=== PATIENT | female | born 1990 | race Caucasian/White ===

== ENCOUNTER → 2016-04-01 | Outpatient (CLI) | payer SELFPAY ==
[~2016-04-01] MED LIST: MOTR200T44 PO; TYLE325T5 PO
--- NOTE | 2016-04-01 09:04 | REP ---
Clinical: Anatomical evaluation. Comparison: 09/03/2015 . Findings: Examination demonstrates a single live intrauterine in none cephalic presentation. motion is identified by technologist. Placenta is noted posteriorly and grade 2 without evidence for placenta previa or abruption. Amniotic fluid volume is normal. Cervix measures 4.4 cm in length and appears closed. No evidence for nuchal cord. Gestational age by current measurements 24 weeks 2 days with IZZY 07/20/2016 . FHR equals 139 beats per minute. BPD 5.8 cm 23 weeks 4 days HC 21.4 cm 23 weeks 3 days AC 20.9 cm 25 weeks 3 days FL 4.7 cm 25 weeks 4 days HL 4.5 cm 26 weeks 4 days HC/AC ratio 1.03 Estimated weight 781 grams ( 73rd percentile). Anatomical assessment demonstrates normal structures including cranium, choroid plexus, cavum, cerebellum/posterior fossa, facial features, lungs, four-chamber heart/ventricular outflow tracts, diaphragm, stomach, cord insertion/three-vessel cord, kidneys/bladder, spine, and extremities. Impression: Single live intrauterine in cephalic presentation. Anatomical assessment is complete and normal. Signed by Jesus Manuel Wang MD 04/01/2016 08:56 A
[2016-04-01 12:32] LABS: BASO % 0.3 % (0.0-1.0); EOS # 0.2 K/mm3 (0.0-0.50); EOS % 1.8 % (0.0-3.0); LARGE UNSTAINED CELL # 0.2 K/mm3 (0.0-0.4); LARGE UNSTAINED CELL % 1.4 % (0.0-4.0); LYMPH # 2.8 K/mm3 (1.5-6.5); LYMPH % 20.1 % (24.0-44.0); MEAN CORPUSCULAR HEMOGLOBIN 31.3 pg (27.0-33.0); MEAN CORPUSCULAR HGB CONC 32.7 g/dl (32.0-36.5); MEAN CORPUSCULAR VOLUME 95.5 fl (80.0-96.0); MONO # 0.8 K/mm3 (0.0-0.8); NEUTROPHILS # 9.3 K/mm3 (1.8-7.7); NEUTROPHILS % 70.5 % (36.0-66.0); PLATELET COUNT, AUTOMATED 300 k/mm3 (150-450); RED CELL DISTRIBUTION WIDTH 12.8 % (11.5-14.5); WHITE BLOOD COUNT 13.2 K/mm3 (4.0-10.0)
[2016-04-01 13:04] LABS: HBsAg Prenatal NEGATIVE (NEGATIVE)
[2016-04-01 13:23] LABS: FREE T4 0.85 NG/DL (0.76-1.46)
[2016-04-01 14:18] LABS: CONTROL LINE INT CTR LINE PRESENT; HIV SCRN NEGATIVE (NEGATIVE); HIV SCRN1 NEGATIVE (NEGATIVE)
== END ==
LOC: M SMT 07:57
PROVIDERS: ATTEND Specialist
DX: Z34.82 Encounter for supervision of other normal pregnancy, second trimester (principal)

== ENCOUNTER 2016-07-16 17:14 | Inpatient (IN) | payer SELFPAY ==
[2016-07-16] VITALS (24 sets, daily range): BP systolic 90–138; BP diastolic 52–72
[~2016-07-16] VITALS: Ht 165.1 cm; Wt 78.0 kg
[2016-07-16] MEDS ORDERED: PENICILLIN G POTASSIUM IV 5 MU in D5W MINI-BAG PLUS 100 ML IV STA (18:16)
--- NOTE | 2016-07-16 18:59 | HPE ---
DATE OF ADMISSION: 07/16/2016 Maria R is a 25-year-old 4, para 1-0-2-1 at 39 weeks gestation with an estimated date of confinement (EDC) of 07/23/2016 based on 23-week ultrasound. She presents to labor and delivery today with report of gush of fluid at approximately 1330 hours. She does report some mild cramping that started after the gushing. Denies any vaginal bleeding. She has had continual leakage, and her fetus has been active. care has been extremely inadequate. She did initiate care at 23 weeks at a [facility] but only obtained one care visit. She reports the inability to obtain insurance. She has been seen at [facility] since about March for education and support. OBSTETRICAL HISTORY: 2010: Spontaneous miscarriage. September: 40-week gestation, 6 pounds 11 ounces, spontaneous vaginal delivery of a live female September 2015: Spontaneous miscarriage. Her first labs: Blood type O+, antibody screen negative, rubella immune. Urine culture with no growth. Hepatitis B surface antigen negative. HIV negative. Hepatitis C antibody nonreactive. Gonorrhea and chlamydia negative. TSH 2.720 with a free T4 of 0.85. She did not have any genetic serum screening markers. She did not have a gestational diabetic screening and she is GBS unknown. PAST MEDICAL HISTORY: Depression, anxiety. FAMILY HISTORY: Hypertension. SURGERIES: Dilation and curettage (D and C). SOCIAL HISTORY: The patient is single. There is no partner at bedside for support at this time. She is a smoker. Denies alcohol and drug use. She denies a history of sexually transmitted diseases (STDs). Denies history of abuse - physical, sexual and emotional. ALLERGIES: No known drug allergies. CURRENT MEDICATIONS: vitamins OBJECTIVE: Temperature 98.9, pulse 84, respirations 18, blood pressure 102/69. heart rate is 130 with moderate variability, positive accelerations, decelerations. No pattern of contractions. Sterile speculum exam: Positive Valsalva, positive pooling, positive Nitrazine and positive ferning. Sterile vaginal exam: 3 cm dilated, 80% effaced and -1 station. ASSESSMENT: Intrauterine at 39 weeks. heart rate category one. Premature rupture of membranes. PLAN: Admit the patient to labor and delivery, labs, out of bed ad steve. Saline lock. Clear liquid diet. Will start intravenous (IV) antibiotics for GBS unknown prophylaxis. I do plan to start IV Pitocin 4 hours post IV antibiotics for GBS. I do anticipate labor and a spontaneous vaginal delivery.
[2016-07-16 19:04] LABS: MEAN CORPUSCULAR HEMOGLOBIN 32.7 pg (27.0-33.0); MEAN CORPUSCULAR HGB CONC 34.8 g/dl (32.0-36.5); MEAN CORPUSCULAR VOLUME 93.9 fl (80.0-96.0); RED CELL DISTRIBUTION WIDTH 13.1 % (11.5-14.5); WHITE BLOOD COUNT 16.6 K/mm3 (4.0-10.0)
[2016-07-16] MEDS ORDERED: LR 1,000 ML IV SCH (21:05)
[2016-07-16] MEDS ORDERED: OXYTOCIN DRIP 30 UNITS in APPROPRIATE DILUENT 1 EA IV SCH ×2 (21:15→23:47)
[2016-07-16] MEDS ORDERED: FENTANYL 2MCG/ML ROPIVACAINE 0.2% IN 0.9% NACL 200ML IVBAG As Ordered ONE (21:25)
[2016-07-16] MEDS ORDERED: ePHEDrine SULFATE 25 MG/5 ML(5MG/ML) SYRINGE IV PRN (22:00)
[2016-07-16] MEDS ORDERED: REFRIGERATOR IV KEYS XX PRN (22:00)
[2016-07-16] MEDS ORDERED: diphenhydrAMINE INJ 50MG/ML VIAL (J1200) IV PRN (22:00)
[2016-07-16] MEDS ORDERED: EPIDURAL COMMENT XX SCH (22:00)
[2016-07-16] MEDS ORDERED: NALOXONE INJ 0.4 MG/1 ML VIAL (J2310) IV PRN (22:00)
[2016-07-16] MEDS ORDERED: LACTATED RINGER'S 1000 ML IV PRN (22:00)
[2016-07-16] MEDS ORDERED: FENTANYL/ROPIVACAINE/NACL BAG 200 ML EPIDURAL SCH (22:00)
[2016-07-16] MEDS ORDERED: ONDANSETRON 4MG/2ML VIAL (J2405) IV PRN (22:00)
[2016-07-16] MEDS ORDERED: EPIDURAL/PCA KEYS XX PRN (22:00)
[2016-07-16] MEDS ORDERED: PENICILLIN G POTASSIUM IV 2.5 MU in D5W 100 ML IV SCH (22:30)
[2016-07-16] MEDS ORDERED: OXYTOCIN 30 UNITS IN 0.9% NaCl 500ML IV BAG (J2590) As Ordered ONE (23:32)
[2016-07-17] VITALS (7 sets, daily range): BP systolic 105–123; BP diastolic 53–68
[2016-07-17] MEDS ORDERED: RHOGAM 300 MCG (1500 IU) INJ (J2790) IM SCH
[2016-07-17] MEDS ORDERED: METHYLERGONOVINE MALEATE 0.2 MG TAB PO PRN
[2016-07-17] MEDS ORDERED: DOCUSATE SODIUM 100 MG CAP PO PRN
[2016-07-17] MEDS ORDERED: MEASLES,MUMPS,RUBELLA VACCINE INJ (MMR-II) (90707) SC SCH
[2016-07-17] MEDS ORDERED: DIBUCAINE 1% OINTMENT 30GM TOP PRN
--- NOTE | 2016-07-17 00:57 | DN ---
DATE: 07/16/2016 Maria R is a 25-year-old 4, para 2-0-2-2 now, who was admitted to labor and delivery with premature rupture of membranes. Labor did ensue spontaneously. She utilized an epidural for her labor coping. She progressed to full dilation at 2317. She pushed to a normal spontaneous vaginal delivery of a live female infant in direct occiput posterior (OP) position with restitution to left occiput transverse (LOT) position at 2327. The shoulders delivered with gentle downward guidance, and the corpus immediately followed. There was a cord near at the shoulder at the time of delivery. [place] was placed on maternal abdomen crying and active. Her mouth and nares were bulb suctioned. The cord was clamped times two and cut by myself. A spontaneous expulsion of an intact placenta with 3-vessel cord by Harvey mechanism was at 2331. Uterine hemostasis achieved with intravenous (IV) Pitocin rapid infusion and uterine fundal massage. Estimated blood loss 250 mL. Perineum and vagina inspected, noted to have a perineal abrasion. Abrasion was bleeding, so two interrupted sutures were placed. Abrasion was hemostatic. Female , Apgars 9 and 9. The weight is pending. Mom is going to breastfeed her daughter, and family have named her April. At the close of delivery, lap counts, needle counts, and instrument counts were correct and verified. [facility]
[2016-07-17] MEDS: PRENATAL VITAMIN TAB PO SCH (09:42)
[2016-07-17] MEDS: IBUPROFEN 800 MG TAB PO PRN ×2 (09:42→21:46)
[2016-07-17] MEDS: ACETAMINOPHEN 500 MG TAB PO PRN ×2 (17:11→21:46)
[2016-07-18] MEDS: IBUPROFEN 800 MG TAB PO PRN (03:05)
[2016-07-18 05:46] VITALS: BP 111/62
[2016-07-18] MEDS: PRENATAL VITAMIN TAB PO SCH (08:12)
[2016-07-18] MEDS ORDERED: IBUP-1114 PO (08:27)
[2016-07-18] MEDS ORDERED: ACET50TA PO (08:27)
[2016-07-18] MEDS ORDERED: PRENTAB9 PO (08:27)
[2016-07-18] MEDS ORDERED: ADACEL/BOOSTRIX VACCINE (DIPHTH/PERTUSS/ACELL/TETANUS)0.5ML SYR (90715) IM ONE (09:00)
[2016-07-24 14:15] LABS: GC Carboxy THC 41 ng/mL (Cutoff=10)
== END 2016-07-18 09:10 | disposition home or self-care (01) | DRG 560 ==
LOC: M LDO 17:14 → M LDI 18:03 → M OBS 07-17 02:21
PROVIDERS: ADMIT Advanced Practice Midwife; ATTEND Advanced Practice Midwife
PROC: 10E0XZZ Delivery of Products of Conception, External Approach (ICD-10-PCS; principal; 2016-07-16)
PROC: 0HQ9XZZ Repair Perineum Skin, External Approach (ICD-10-PCS; 2016-07-16)
DX: O99.334 Smoking (tobacco) complicating childbirth (principal); F17.200 Nicotine dependence, unspecified, uncomplicated; Z3A.39 39 weeks gestation of pregnancy; Z37.0 Single live birth; Z82.49 Family history of ischemic heart disease and other diseases of the circulatory system; Z79.899 Other long term (current) drug therapy; O70.0 First degree perineal laceration during delivery

== ENCOUNTER 2016-11-03 17:03 | Emergency (ER) | payer MEDICAID, OTHER ==
[~2016-11-03] VITALS: Ht 165.1 cm; Wt 79.5 kg
[~2016-11-03 17:03] MED LIST changes: +ACET50TA PO; +IBUP-1114 PO; +PRENTAB9 PO
--- NOTE | 2016-11-03 18:40 | REPUSA ---
Clinical history: spotting. Findings: Real-time transabdominal and transvaginal ultrasound images of the pelvis were obtained. An anteverted uterus is noted, measuring 9.3 x 4.3 x 5.6 cm. The uterus demonstrates normal echotexture and echogenicity. There is a single intrauterine gestational sac, with a mean sac diameter of 29 mm. No pole or yolk sac is identified. The right ovary measures 3.3 x 2.7 x 2.9 cm. There is a com plex cyst in the right ovary measuring 2.4 x 1.0 x 1.6 cm. The left ovary measures 4.1 x 1.9 x 1.8 cm . No adnexal masses are seen. Color Doppler flow is seen within both ovaries. There is no evidence of free fluid. Impression: 1. Intrauterine gestational sac measuring 5 weeks 0 days by ultrasound measurements. No pole or yolk sac is seen at this time, likely because of the early age of the . Follow-up with seri al serum beta hCG levels is recommended. 2. Complex right ovarian cyst, likely representing a corpus luteum cyst.
[2016-11-03 18:50] LABS: BASO % 0.5 % (0.0-1.0); EOS # 0.3 K/mm3 (0.0-0.50); LARGE UNSTAINED CELL # 0.3 K/mm3 (0.0-0.4); LARGE UNSTAINED CELL % 2.4 % (0.0-4.0); LYMPH # 3.5 K/mm3 (1.5-6.5); LYMPH % 34.9 % (24.0-44.0); MEAN CORPUSCULAR HEMOGLOBIN 32.3 pg (27.0-33.0); MEAN CORPUSCULAR HGB CONC 35.2 g/dl (32.0-36.5); MEAN CORPUSCULAR VOLUME 91.9 fl (80.0-96.0); MONO # 0.5 K/mm3 (0.0-0.8); MONO % 5.4 % (0.0-5.0); NEUTROPHILS # 5.4 K/mm3 (1.8-7.7); NEUTROPHILS % 53.8 % (36.0-66.0); PLATELET COUNT, AUTOMATED 315 k/mm3 (150-450); RED CELL DISTRIBUTION WIDTH 12.3 % (11.5-14.5); WHITE BLOOD COUNT 10.1 K/mm3 (4.0-10.0)
[2016-11-03 18:56] LABS: ANION GAP 9 MEQ/L (8-16); BLOOD UREA NITROGEN 10 MG/DL (7-18); CALCIUM LEVEL 8.3 MG/DL (8.5-10.1); CARBON DIOXIDE LEVEL 25 MEQ/L (21-32); CHLORIDE LEVEL 110 MEQ/L (98-107); CREATININE FOR GFR 0.69 MG/DL (0.55-1.02); GLOMERULAR FILTRATION RATE > 60.0 (>60); GLUCOSE, FASTING 77 MG/DL (70-105); HCG, SERUM QUANTITATIVE 367 MIU/ML; SODIUM LEVEL 144 MEQ/L (136-145)
[2016-11-03] MEDS ORDERED: MACR100C43 PO (19:10)
[2016-11-03] MEDS ORDERED: NITROFURANTOIN (MACROBID) 100 MG CAP PO ONE (19:15)
[2016-11-03 19:20] VITALS: BP 122/69
== END 2016-11-03 19:28 | disposition home or self-care (01) ==
LOC: M ED 17:03
DX: O23.10 Infections of bladder in pregnancy, unspecified trimester (principal); O20.9 Hemorrhage in early pregnancy, unspecified; O99.511 Diseases of the respiratory system complicating pregnancy, first trimester; J45.909 Unspecified asthma, uncomplicated; O99.341 Other mental disorders complicating pregnancy, first trimester; F32.9 Major depressive disorder, single episode, unspecified; O99.331 Smoking (tobacco) complicating pregnancy, first trimester; F17.210 Nicotine dependence, cigarettes, uncomplicated; Z3A.01 Less than 8 weeks gestation of pregnancy

== ENCOUNTER 2016-11-20 11:22 | Emergency (ER) | payer OTHER ==
[~2016-11-20] VITALS: Ht 165.1 cm; Wt 80.9 kg
[~2016-11-20 11:22] MED LIST changes: +MACR100C43 PO
[2016-11-20 11:25] VITALS: BP 124/71
[2016-11-20 11:56] LABS: CONTROL LINE UCG INT CTR LINE PRESENT
== END 2016-11-20 13:23 | disposition left against medical advice (07) ==
LOC: M ED 11:22
DX: N93.9 Abnormal uterine and vaginal bleeding, unspecified (principal); Z53.29 Procedure and treatment not carried out because of patient's decision for other reasons

== ENCOUNTER 2017-08-18 18:19 | Emergency (ER) | payer OTHER, SELFPAY ==
[2017-08-18] MEDS: IBUPROFEN 600 MG TAB PO ×2 (19:24)
[2017-08-18 19:29] LABS: BASO # 0.1 10^3/uL (0.0-0.2); BASO % 0.4 % (0.0-1.0); EOS # 0.4 10^3/uL (0.0-0.50); EOS % 3.6 % (0.0-3.0); HEMATOCRIT 42.3 % (36.0-47.0); HEMOGLOBIN 14.6 g/dl (12.0-15.5); IMMATURE GRANULOCYTE % 0.3 % (0-3.0); LYMPH # 4.5 10^3/uL (1.5-6.5); LYMPH % 37.1 % (24.0-44.0); MEAN CORPUSCULAR HEMOGLOBIN 32.4 pg (27.0-33.0); MEAN CORPUSCULAR HGB CONC 34.5 g/dl (32.0-36.5); MEAN CORPUSCULAR VOLUME 93.8 fl (80.0-96.0); MONO # 0.8 10^3/uL (0.0-0.8); NEUTROPHILS # 6.2 10^3/uL (1.8-7.7); NEUTROPHILS % 51.6 % (36.0-66.0); PLATELET COUNT, AUTOMATED 324 10^3/uL (150-450); RED BLOOD COUNT 4.51 10^6/uL (4.00-5.40); RED CELL DISTRIBUTION WIDTH 12.2 % (11.5-14.5); WHITE BLOOD COUNT 12.1 10^3/uL (4.0-10.0)
[2017-08-18 19:48] LABS: CONTROL LINE HCG INT CTR LINE PRESENT; HCG, SERUM QUALITATIVE NEGATIVE (NEGATIVE)
[2017-08-18 19:52] LABS: ANION GAP 9 MEQ/L (8-16); BLOOD UREA NITROGEN 13 MG/DL (7-18); CARBON DIOXIDE LEVEL 24 MEQ/L (21-32); CHLORIDE LEVEL 108 MEQ/L (98-107); CREATININE FOR GFR 0.85 MG/DL (0.55-1.30); GLOMERULAR FILTRATION RATE > 60.0 (>60); GLUCOSE, FASTING 97 MG/DL (70-100); POTASSIUM SERUM 3.9 MEQ/L (3.5-5.1); SODIUM LEVEL 141 MEQ/L (136-145)
== END 2017-08-18 20:37 | disposition home or self-care (01) ==
LOC: M ED 18:19
DX: H60.92 Unspecified otitis externa, left ear (principal); R59.0 Localized enlarged lymph nodes; F17.200 Nicotine dependence, unspecified, uncomplicated
CPT/HCPCS: 70480

== ENCOUNTER 2017-08-24 16:53 | Emergency (ER) | payer SELFPAY ==
[2017-08-24] MEDS: BACTRIM 160MG/800MG DS TAB PO (19:30)
[2017-08-24] MEDS: MUPIROCIN 2% OINT 22 GM TUBE TOP (19:30)
== END 2017-08-24 19:34 | disposition home or self-care (01) ==
LOC: M ED 16:53
DX: H60.12 Cellulitis of left external ear (principal); F17.200 Nicotine dependence, unspecified, uncomplicated; Z79.2 Long term (current) use of antibiotics
CPT/HCPCS: 99283

== ENCOUNTER 2018-05-10 16:33 | Emergency (ER) | payer OTHER, SELFPAY ==
[~2018-05-10] VITALS: Ht 165.1 cm; Wt 87.5 kg
[~2018-05-10 16:33] MED LIST changes: -ACET50TA PO; +AUGM500T34 PO; +BACT800T5 PO; +IBUP-1022 PO; +MAPA500T2 PO; +OFLOSO; +OFLOSO OTIC
[2018-05-10] MEDS ORDERED: NS 1,000 ML IV ONE (17:15)
[2018-05-10] MEDS ORDERED: METOCLOPRAMIDE INJ 10MG/2ML VIAL (J2765) IV ONE (17:15)
[2018-05-10 17:32] LABS: BASO % 0.2 % (0.0-1.0); EOS % 0.2 % (0.0-3.0); HEMATOCRIT 38.4 % (36.0-47.0); HEMOGLOBIN 13.2 g/dl (12.0-15.5); LYMPH % 9.5 % (24.0-44.0); MEAN CORPUSCULAR HGB CONC 34.4 g/dl (32.0-36.5); MEAN CORPUSCULAR VOLUME 90.1 fl (80.0-96.0); MONO # 0.4 10^3/uL (0.0-0.8); MONO % 3.4 % (0.0-5.0); NEUTROPHILS # 8.8 10^3/uL (1.8-7.7); NEUTROPHILS % 86.3 % (36.0-66.0); PLATELET COUNT, AUTOMATED 242 10^3/uL (150-450); RED BLOOD COUNT 4.26 10^6/uL (4.00-5.40); WHITE BLOOD COUNT 10.2 10^3/uL (4.0-10.0)
[2018-05-10 18:08] LABS: INFLUENZA A AMPLIFICATION NEGATIVE (NEGATIVE); INFLUENZA B AMPLIFICATION NEGATIVE (NEGATIVE)
[2018-05-10 18:15] LABS: ALBUMIN 3.1 GM/DL (3.2-5.2); ALT/SGPT 21 U/L (12-78); BILIRUBIN,DIRECT 0.1 MG/DL (0.0-0.2); BILIRUBIN,TOTAL 0.5 MG/DL (0.2-1.0); BLOOD UREA NITROGEN 6 MG/DL (7-18); CALCIUM LEVEL 8.2 MG/DL (8.5-10.1); CARBON DIOXIDE LEVEL 22 MEQ/L (21-32); CHLORIDE LEVEL 105 MEQ/L (98-107); CREATININE FOR GFR 0.52 MG/DL (0.55-1.30); GLOMERULAR FILTRATION RATE > 60.0 (>60); GLUCOSE, FASTING 87 MG/DL (70-100); HCG, SERUM QUANTITATIVE 25057 MIU/ML; LIPASE 67 U/L (73-393); POTASSIUM SERUM 3.7 MEQ/L (3.5-5.1); SODIUM LEVEL 136 MEQ/L (136-145); TOTAL PROTEIN 6.2 GM/DL (6.4-8.2)
[2018-05-10] MEDS ORDERED: ACETAMINOPHEN 500 MG TAB PO ONE (19:45)
--- NOTE | 2018-05-10 20:36 | REPVR ---
EXAM: US First Trimester, Transabdominal EXAM DATE/TIME: 05/10/2018 7:24 PM CLINICAL HISTORY: 27 years old, female; Signs and symptoms; Lmp or gestational age (in weeks): 14w 1d; Antepartum complications; Other: Unknown dates; ; Additional info: Preg, back pain ? gestational age TECHNIQUE: Imaging protocol: Real-time transabdominal obstetrical ultrasound of the maternal pelvis and a first trimester , less than 14 weeks 0 days, with image documentation. COMPARISON: US OBS SINGLE GEST 04/01/2016 8:07 AM FINDINGS: GESTATION: Gestation: Single fetus. Heart rate: heart rate 173 beats per minute. Placenta: Posterior placenta. No placenta previa. Amniotic fluid: Amniotic and chorionic fluid are normal for gestational age. BIOMETRY: Estimated gestational age: Gestational age is 14 weeks 1 day using ultrasound measurements. EGD 11/07/2018. Estimated weight: Estimated weight 89 grams (37 percentile). Biparietal diameter: BPD 2.6 centimeters. Head circumference: Head circumference 9.6 centimeters. Abdominal circumference: Abdominal circumference 7.5 centimeters Femur length: Femur length 1.4 centimeters. MATERNAL: Uterus: Unremarkable. Cervix: Unremarkable. Right adnexa: Unremarkable. Left adnexa: Unremarkable. Intraperitoneal: No intraperitoneal free fluid. IMPRESSION: Unremarkable evaluation in this 14 week 1 day gestational age . Estimated weight minimally small for dates a followup ultrasound to assess interval growth suggested. Electronically signed by: Lei Wilson On 05/10/2018 20:35:42 PM
[2018-05-10 20:45] VITALS: BP 129/63
== END 2018-05-10 21:00 | disposition home or self-care (01) ==
LOC: M ED 16:33
DX: O21.9 Vomiting of pregnancy, unspecified (principal); O26.892 Other specified pregnancy related conditions, second trimester; Z3A.14 14 weeks gestation of pregnancy
CPT/HCPCS: 76801; 80048; 80076; 83690; 84702; 85025; 86850; 86900; 86901; 87502; 93041; 96361; 96374; 99284; J2765

== ENCOUNTER → 2018-06-16 | Outpatient (REF) | payer OTHER ==
[2018-06-16 13:25] LABS: HEMATOCRIT 38.1 % (36.0-47.0); MEAN CORPUSCULAR HEMOGLOBIN 31.8 pg (27.0-33.0); MEAN CORPUSCULAR HGB CONC 34.1 g/dl (32.0-36.5); MEAN CORPUSCULAR VOLUME 93.2 fl (80.0-96.0); PLATELET COUNT, AUTOMATED 322 10^3/uL (150-450); RED BLOOD COUNT 4.09 10^6/uL (4.00-5.40)
[2018-06-16 13:53] LABS: HCG, SERUM QUANTITATIVE 9049 MIU/ML
[2018-06-17 11:39] LABS: RUBELLA IgG QUALITATIVE IMMUNE (IMMUNE)
[2018-06-17 12:07] LABS: HEPATITIS C VIRUS ABY INDEX < 0.0 INDEX (<0.8); HIV 1&2 SCREEN CENTAUR NEGATIVE (NEGATIVE)
== END ==
LOC: M LAB REF 12:34
PROVIDERS: ATTEND Obstetrics & Gynecology
DX: O36.80X0 Pregnancy with inconclusive fetal viability, not applicable or unspecified (principal); Z32.01 Encounter for pregnancy test, result positive; Z3A.00 Weeks of gestation of pregnancy not specified

== ENCOUNTER 2018-11-12 16:45 | Outpatient (CLI) | payer OTHER ==
[~2018-11-12] VITALS: Ht 165.1 cm; Wt 95.8 kg
[2018-11-12 17:08] VITALS: BP 140/79
[2018-11-12] MEDS ORDERED: TUMS (17:17)
[2018-11-12 18:08] VITALS: BP 109/64
[2018-11-12] MEDS ORDERED: diphenhydrAMINE 25 MG CAP PO ONE (19:15)
[2018-11-12] MEDS ORDERED: ACETAMINOPHEN 500 MG TAB PO ONE (19:15)
[2018-11-12 19:26] VITALS: BP 119/70
== END 2018-11-12 19:00 | disposition home or self-care (01) ==
LOC: M LDO 16:45
PROVIDERS: ATTEND Specialist
DX: O26.893 Other specified pregnancy related conditions, third trimester (principal); O47.1 False labor at or after 37 completed weeks of gestation; Z3A.40 40 weeks gestation of pregnancy

== ENCOUNTER 2018-11-13 13:23 | Inpatient (IN) | payer OTHER ==
[2018-11-13] VITALS (18 sets, daily range): BP systolic 106–152; BP diastolic 57–83
[~2018-11-13] VITALS: Ht 165.1 cm; Wt 95.8 kg
[~2018-11-13 13:23] MED LIST changes: +TUMS
[2018-11-13] MEDS ORDERED: LACTATED RINGER'S 1000 ML IV STA (14:52)
--- NOTE | 2018-11-13 15:13 | HPEPDOC ---
Obstetrical History & Physical General Date of Admission Nov 13, 2018 at 13:23 History of Present Illness Chief Complaint: Induction of labor Information Provided By: Patient Age: 28 : 6 Term: 2 Pre-term: 0 Abortions: 3 Livin Care Care: None ( labs and dating sono only) Dating Final EDC: Nov 07, 2018 Final EDC by: 2nd trimester (US) EGA at Admission: 40 (+6) Past Medical History Past Obstetrical History #1: Past Obstetrical History: Primgravida (2013) Type of Delivery: Spontaneous Vaginal Del. Sex of Infant: Female (6#11) Complications: No (limited care) Past Obstetrical History #2: Past Obstetrical History: Multigravida (2017) Type of Delivery: Spontaneous Vaginal Del. Sex of : Female (6#9) Complications: No (limited care) TRANSPORTATION AID History: Spontaneous Past Medical History Medical History Denies Surgical History: Dilatation and Curettage, Other (tympanosotomy tubes) Family History Significant Family History: Cancer Social History Marital Status: Family situation: Spouse/partner home Psychosocial History: No pertinent psych hx * Smoker: current smoker (1-3 cig/day plus vaping) Alcohol: Denies Drugs: denies Allergies Coded Allergies: No Known Allergies (Unverified , 09/20/13) Medications Miscellaneous Medications [Tums] Physical Examination Physical Examination GENERAL: Alert and oriented times three. BREAST: . ABDOMEN: Gravid and non-tender to touch. FETUS: Is vertex (VTX) by sterile vaginal examination (SVE), fetus is vertex (VTX) by Mazin. Vertex by bedside sono today HEART RATE: Regular rate and rhythm. LUNGS: Clear to auscultation (CTA). EXTREMITIES: No edema. No clonus. Deep tendon reflexes (DTRs) + 2. Vital Signs/I&O Vital Signs Date Time Temp Pulse Resp B/P (MAP) Pulse Ox O2 Delivery O2 Flow Rate FiO2 11/13/18 13:42 97.8 88 18 124/70 (88) Laboratory Data 24H LABS Laboratory Tests 2 11/13/18 13:40: Serology Scanned Report Hepatitis B Testing Pertinent Laboratoy Data Blood Type: O+ RBC Antibody Screen: Negative HIV: Negative Hepatitis B: Negative Hepatitis C: Negative Rapid Plasma Reagin: Nonreactive Rubella: Immune Chlamydia/Gonorrhea: Unknown (obtained on admit) Group B Streptococcus: Negative Diag/Inter Therapy Glucose test unknown. Anatomy Ultrasound Ultrasound Date: May 10, 2018 Placenta Location: Posterior (too early for anatomy) Placenta Previa: No Steroid Therapy Steroid Therapy: No Vaginal Examination Dilation: 3 cm Effacement: 50% Station: -3 Cervical Consistency: Medium Cervical Position: Posterior Presentation: Cephalic presentation Assessment Heart Rate (FHR): 135 Variability: Moderate Accelerations: Positive Decelerations: None Tocometer Contractions: Yes Frequency: irregular Strength: palpated as mild Assessment/Plan Assessment Maria R is a 28-year-old (G)6 para (P)2-0-3-2 at 40+6 weeks by 14-week ultrasound. Presents to Labor and Delivery (L&D) for induction of labor. has been complicated by lack of care. Only had labs and a 14 week dating ultrasound. GBS was obtained at [facility] last week at a labor check. Denies LOF, bleeding or regular UC. Plan Admit and orient. [employer] and consent per consult Dr Cook Diet: Regular. Group B Streptococcus (GBS) negative. Labs and intravenous (IV) per unit protocol. Counseled on misoprostol, Pitocin and induction of labor (IOL). Lactated Ringers (LR): Bolus 500 mL, then saline lock. Plans epidural for labor coping Anticipate normal spontaneous delivery (). C-S as appropriate. Monika Stovall CNM Nov 13, 2018 15:07
[2018-11-13 15:31] LABS: HEMATOCRIT 37.3 % (36.0-47.0); HEMOGLOBIN 12.8 g/dl (12.0-15.5); MEAN CORPUSCULAR HEMOGLOBIN 32.9 pg (27.0-33.0); MEAN CORPUSCULAR HGB CONC 34.3 g/dl (32.0-36.5); MEAN CORPUSCULAR VOLUME 95.9 fl (80.0-96.0); PLATELET COUNT, AUTOMATED 288 10^3/uL (150-450); RED BLOOD COUNT 3.89 10^6/uL (4.00-5.40); WHITE BLOOD COUNT 14.5 10^3/uL (4.0-10.0)
[2018-11-13 15:53] LABS: AMPHETAMINES URINE REFLEX NEGATIVE (NEGATIVE); BARBITURATES URINE REFLEX NEGATIVE (NEGATIVE); BENZODIAZEPINES URINE REFLEX NEGATIVE (NEGATIVE); CANNABINOIDS URINE REFLEX NEGATIVE (NEGATIVE); COCAINE METABOLITE URINE REFLE NEGATIVE (NEGATIVE); METHADONE URINE REFLEX NEGATIVE (NEGATIVE); OPIATES URINE REFLEX NEGATIVE (NEGATIVE); PHENCYCLIDINE URINE REFLEX NEGATIVE (NEGATIVE)
[2018-11-13] MEDS: miSOPROStol 50 MCG 1/2 TAB (S0191) PO SCH ×2 (16:00→19:59)
[2018-11-13 17:46] LABS: CHLAMYDIA DNA AMPLIFICATION NEGATIVE (NEGATIVE); GC DNA AMPLIFICATION NEGATIVE (NEGATIVE)
[2018-11-13] MEDS ORDERED: FENTANYL 2MCG/ML ROPIVACAINE 0.2% IN 0.9% NACL 100ML IVBAG As Ordered ONE (22:34)
[2018-11-13] MEDS ORDERED: LR 1,000 ML IV SCH (23:46)
--- NOTE | 2018-11-13 23:48 | IPNPDOC ---
Text Note Date of Service The patient was seen on 11/13/18. NOTE Comfortable with epidural UC 2-5 minutes apart FH 145, Cat I SVE 4/80/-1, midline Start pitocin. Anticipate NSVB VS,Fishbone, I+O VS, Fishbone, I+O Laboratory Tests 11/13/18 15:13 Red Blood Count 3.89 L, Mean Corpuscular Volume 95.9, Mean Corpuscular Hemoglobin 32.9, Mean Corpuscular Hemoglobin Concent 34.3, Red Cell Distribution Width 13.7 Vital Signs Date Time Temp Pulse Resp B/P (MAP) Pulse Ox O2 Delivery O2 Flow Rate FiO2 11/13/18 18:17 81 18 135/68 (90) 11/13/18 13:42 97.8 Monika Stovall CNM Nov 13, 2018 23:48
[2018-11-14] VITALS (12 sets, daily range): BP systolic 102–134; BP diastolic 50–75
[2018-11-14] MEDS ORDERED: OXYTOCIN DRIP 30 UNITS in IV 1 EA IV SCH ×2
[2018-11-14] MEDS ORDERED: diphenhydrAMINE INJ 50MG/ML VIAL (J1200) IV PRN (00:30)
[2018-11-14] MEDS ORDERED: ePHEDrine SULFATE 25 MG/5 ML(5MG/ML) SYRINGE IV PRN (00:30)
[2018-11-14] MEDS ORDERED: REFRIGERATOR IV KEYS XX PRN (00:30)
[2018-11-14] MEDS ORDERED: NALOXONE INJ 0.4 MG/1 ML VIAL (J2310) IV PRN (00:30)
[2018-11-14] MEDS ORDERED: EPIDURAL/PCA KEYS XX PRN (00:30)
[2018-11-14] MEDS ORDERED: EPIDURAL COMMENT XX SCH (00:30)
[2018-11-14] MEDS ORDERED: FENTANYL/ROPIVACAINE/NACL BAG 100 ML EPIDURAL SCH (00:30)
[2018-11-14] MEDS ORDERED: ONDANSETRON 4MG/2ML VIAL (J2405) IV PRN (00:30)
[2018-11-14] MEDS ORDERED: ACETAMINOPHEN TAB 650MG DOSE (2X325MG) PO PRN (02:30)
[2018-11-14] MEDS ORDERED: DIBUCAINE 1% OINTMENT 30GM TOP PRN (02:30)
[2018-11-14] MEDS ORDERED: METHYLERGONOVINE MALEATE 0.2 MG TAB PO PRN (02:30)
[2018-11-14] MEDS ORDERED: ANUSOL HC CREAM 30GM TOP PRN (02:30)
[2018-11-14] MEDS ORDERED: RHOGAM 300 MCG (1500 IU) INJ (J2790) IM SCH (02:30)
[2018-11-14] MEDS ORDERED: MOM 30ML SUSPENSION UDC PO PRN (02:30)
[2018-11-14] MEDS ORDERED: DOCUSATE SODIUM 100 MG CAP PO PRN (02:30)
[2018-11-14] MEDS ORDERED: MEASLES,MUMPS,RUBELLA VACCINE INJ (MMR-II) (90707) SC SCH (02:30)
[2018-11-14] MEDS ORDERED: IBUPROFEN 800 MG TAB PO PRN (02:30)
--- NOTE | 2018-11-14 02:33 | DNPDOC ---
[facility] Delivery Note Delivery Note DATE OF DELIVERY: November 14, 2018 PREDELIVERY DIAGNOSIS: 41-0/7 weeks' gestation and labor. POST DELIVERY DIAGNOSIS: Delivered. PROCEDURE: Spontaneous vaginal delivery PROVIDER: Monika Stovall CNM ANESTHESIA: Epidural. ESTIMATED BLOOD LOSS: 200 mL. FINDINGS: 7 pound 7 ounce, 3360gm male infant, Score 9/9, no nuchal cord. DELIVERY SUMMARY: Patient is a 28-year-old 6 now para 3-0-3-3 who was admitted to labor and delivery for induction of labor. She received two doses misoprostol followed by pitocin and labor did progress. She utilized an epidural for labor coping. SROM clear fluid 0108. FD 0155. Viable male delivered GEOVANNY 0159. Spontaneous respirations, transitioned on maternal abdomen. Cord doubly clamped and cut by FOB under my direction once pulsations ceased. Apgars 9/9. Placenta luciano, intact 0203. Fundus firmed with massage and IV pitocin bolus. EBL 200ml. Cervix, vagina and perineum intact. Sponge, sharp and instrument count correct. Monika Stovall CNM Nov 14, 2018 02:33
[2018-11-14] MEDS: ACETAMINOPHEN 500 MG TAB PO PRN ×2 (08:57→20:33)
[2018-11-14] MEDS: PRENATAL VITAMINS CHEWABLE TABLET PO SCH (08:57)
[2018-11-15 06:00] VITALS: BP 132/73
[2018-11-15] MEDS: PRENATAL VITAMINS CHEWABLE TABLET PO SCH (07:45)
[2018-11-15] MEDS: IBUPROFEN 600 MG TAB PO PRN ×2 (08:30→20:38)
[2018-11-15 17:47] VITALS: BP 140/73
[2018-11-16 06:00] VITALS: BP 138/71
[2018-11-16] MEDS: PRENATAL VITAMINS CHEWABLE TABLET PO SCH (09:03)
[2018-11-16] MEDS ORDERED: IBUP80TA PO (09:35)
== END 2018-11-16 13:50 | disposition home or self-care (01) | DRG 560 ==
LOC: M LDI 13:23 → M OBS 11-14 04:06
PROVIDERS: ADMIT Advanced Practice Midwife; ATTEND Advanced Practice Midwife
PROC: 3E0P7GC Introduction of Other Therapeutic Substance into Female Reproductive, Via Natural or Artificial Opening (ICD-10-PCS; 2018-11-13)
PROC: 10E0XZZ Delivery of Products of Conception, External Approach (ICD-10-PCS; principal; 2018-11-14)
DX: O48.0 Post-term pregnancy (principal); F17.210 Nicotine dependence, cigarettes, uncomplicated; F17.290 Nicotine dependence, other tobacco product, uncomplicated; Z3A.40 40 weeks gestation of pregnancy; O99.334 Smoking (tobacco) complicating childbirth; Z91.19 Patient's noncompliance with other medical treatment and regimen; Z37.0 Single live birth

== ENCOUNTER → 2020-12-07 | Outpatient (CLI) | payer OTHER ==
[~2020-12-07] MED LIST changes: +IBUP80TA PO
== END ==
LOC: M LABSMTC 10:58
PROVIDERS: ATTEND Pediatrics
DX: Z20.822 Contact with and (suspected) exposure to COVID-19 (principal)
CPT/HCPCS: C9803; U0003

== ENCOUNTER 2021-08-28 09:35 | Emergency (ER) | payer OTHER ==
[~2021-08-28] VITALS: Ht 165.1 cm; Wt 75.0 kg
[~2021-08-28 09:35] MED LIST changes: +AMOX875T2 PO; +ISIB1TAB PO
[2021-08-28 11:30] VITALS: BP 129/70
[2021-08-28] MEDS ORDERED: KETOROLAC 30 MG/ML 1ML VIAL IV ONE (12:45)
[2021-08-28] MEDS ORDERED: BOOSTRIX/ADACEL VACCINE (DIPHTH/PERTUSS/ACELL/TETANUS) 0.5ML SYR IM ONE (12:45)
[2021-08-28 13:26] LABS: BASO % 0.3 % (0.0-1.0); EOS # 0.3 10^3/uL (0.0-0.5); EOS % 2.1 % (0.0-3.0); HEMOGLOBIN 14.1 g/dl (12.0-15.5); LYMPH # 3.8 10^3/uL (1.5-5.0); LYMPH % 26.3 % (24.0-44.0); MEAN CORPUSCULAR HEMOGLOBIN 31.5 pg (27.0-33.0); MEAN CORPUSCULAR HGB CONC 32.8 g/dl (32.0-36.5); MONO # 0.7 10^3/uL (0.0-0.8); MONO % 4.9 % (2.0-8.0); NEUTROPHILS # 9.5 10^3/uL (1.5-8.5); PLATELET COUNT, AUTOMATED 341 10^3/uL (150-450); RED BLOOD COUNT 4.48 10^6/uL (4.00-5.40); WHITE BLOOD COUNT 14.4 10^3/uL (4.0-10.0)
[2021-08-28 13:52] LABS: ERYTHROCYTE SEDIMENTATION RATE 18 mm/hr (0-20)
[2021-08-28 13:57] LABS: BLOOD UREA NITROGEN 8 MG/DL (7-18); C REACTIVE PROTEIN QUANTITATIV 4.43 MG/DL (0.00-0.30); CALCIUM LEVEL 9.6 MG/DL (8.5-10.1); CARBON DIOXIDE LEVEL 27 MEQ/L (21-32); CHLORIDE LEVEL 107 MEQ/L (98-107); CREATININE FOR GFR 0.75 MG/DL (0.55-1.30); GLOMERULAR FILTRATION RATE > 60.0 (>60); GLUCOSE, FASTING 84 MG/DL (70-100); POTASSIUM SERUM 4.4 MEQ/L (3.5-5.1); SODIUM LEVEL 137 MEQ/L (136-145)
[2021-08-28] MEDS ORDERED: cefTRIAXone SOD 1 GM in D5W MINI-BAG PLUS 50 ML IV ONE (14:25)
[2021-08-28] MEDS ORDERED: BACITRACIN OINTMENT 30GM TUBE TOP ONE (15:05)
[2021-08-28] MEDS ORDERED: KETO10TAB PO (15:08)
[2021-08-28] MEDS ORDERED: BACT800T5 PO (15:08)
[2021-08-28] MEDS ORDERED: DIFL150T PO (15:08)
== END 2021-08-28 15:34 | disposition home or self-care (01) ==
LOC: M ED 09:35
DX: L03.115 Cellulitis of right lower limb (principal)
CPT/HCPCS: 80048; 83605; 85025; 85652; 86140; 87070; 87205; 90471; 90715; 93971; 96365; 96375; 99284; J0696; J1885

== ENCOUNTER 2023-03-08 13:10 | Emergency (ER) | payer OTHER ==
[~2023-03-08] VITALS: Ht 165.1 cm; Wt 85.6 kg
[~2023-03-08 13:10] MED LIST changes: +DIFL150T PO; +KETO10TAB PO
[2023-03-08 13:52] LABS: BASO # 0.1 10^3/uL (0.0-0.2); BASO % 0.5 % (0.0-1.0); EOS # 0.3 10^3/uL (0.0-0.5); EOS % 2.2 % (0.0-3.0); HEMATOCRIT 38.1 % (36.0-47.0); HEMOGLOBIN 13.3 g/dl (12.0-15.5); LYMPH # 3.4 10^3/uL (1.5-5.0); LYMPH % 25.3 % (24.0-44.0); MEAN CORPUSCULAR HEMOGLOBIN 32.7 pg (27.0-33.0); MEAN CORPUSCULAR HGB CONC 34.9 g/dl (32.0-36.5); MEAN CORPUSCULAR VOLUME 93.6 fl (80.0-96.0); MONO # 0.9 10^3/uL (0.0-0.8); MONO % 6.4 % (2.0-8.0); NEUTROPHILS # 8.8 10^3/uL (1.5-8.5); NEUTROPHILS % 65.2 % (36.0-66.0); PLATELET COUNT, AUTOMATED 287 10^3/uL (150-450); RED BLOOD COUNT 4.07 10^6/uL (4.00-5.40); WHITE BLOOD COUNT 13.5 10^3/uL (4.0-10.0)
[2023-03-08 14:24] LABS: LIPASE 32 U/L (12-53)
[2023-03-08 14:27] LABS: ALBUMIN 3.5 G/DL (3.2-5.2); ALKALINE PHOSPHATASE 72 U/L (46-116); ALT/SGPT 32 U/L (7.0-40); AST/SGOT 16 U/L (<34); BILIRUBIN,DIRECT 0.1 MG/DL (<0.4); BILIRUBIN,TOTAL 0.4 MG/DL (0.3-1.2); BLOOD UREA NITROGEN 10 MG/DL (9-23); CARBON DIOXIDE LEVEL 26 MMOL/L (20-31); CHLORIDE LEVEL 105 MMOL/L (98-107); CREATININE FOR GFR 0.65 MG/DL (0.55-1.30); GLOMERULAR FILTRATION RATE > 60.0 (>60); GLUCOSE, FASTING 95 MG/DL (60-100); SODIUM LEVEL 136 MMOL/L (136-145); TOTAL PROTEIN 6.3 G/DL (5.7-8.2)
[2023-03-08 14:28] LABS: HCG, SERUM QUALITATIVE POSITIVE (NEGATIVE)
[2023-03-08 16:27] LABS: HCG, SERUM QUANTITATIVE 94794.7 MIU/ML (<4.2)
[2023-03-08] MEDS ORDERED: AUGMENTIN 875 MG TAB PO ONE (17:50)
[2023-03-08] MEDS ORDERED: AMOX875T2 PO (17:53)
[2023-03-08 18:05] VITALS: BP 124/81; TEMP 98.1; O2SAT 99
== END 2023-03-08 18:02 | disposition home or self-care (01) ==
LOC: M ED 13:10
DX: O26.611 Liver and biliary tract disorders in pregnancy, first trimester (principal); O41.8X10 Other specified disorders of amniotic fluid and membranes, first trimester, not applicable or unspecified; Z3A.08 8 weeks gestation of pregnancy

== ENCOUNTER 2023-05-06 16:56 | Emergency (ER) | payer OTHER ==
[~2023-05-06] VITALS: Ht 165.1 cm; Wt 83.6 kg
[2023-05-06 16:57] VITALS: BP 119/70; TEMP 96.9; O2SAT 96
== END 2023-05-06 17:43 | disposition left against medical advice (07) ==
LOC: M ED 16:56
DX: Z53.21 Procedure and treatment not carried out due to patient leaving prior to being seen by health care provider (principal)

== ENCOUNTER 2023-05-11 17:19 | Emergency (ER) | payer OTHER ==
[~2023-05-11] VITALS: Ht 165.1 cm; Wt 83.2 kg
[2023-05-11 18:25] LABS: BASO % 0.4 % (0.0-1.0); EOS # 0.4 10^3/uL (0.0-0.5); EOS % 3.5 % (0.0-3.0); HEMATOCRIT 33.5 % (36.0-47.0); HEMOGLOBIN 11.7 g/dl (12.0-15.5); LYMPH # 2.9 10^3/uL (1.5-5.0); LYMPH % 25.9 % (24.0-44.0); MEAN CORPUSCULAR HEMOGLOBIN 32.8 pg (27.0-33.0); MEAN CORPUSCULAR HGB CONC 34.9 g/dl (32.0-36.5); MEAN CORPUSCULAR VOLUME 93.8 fl (80.0-96.0); MONO # 0.6 10^3/uL (0.0-0.8); MONO % 5.7 % (2.0-8.0); NEUTROPHILS # 7.2 10^3/uL (1.5-8.5); NEUTROPHILS % 64.1 % (36.0-66.0); PLATELET COUNT, AUTOMATED 243 10^3/uL (150-450); RED BLOOD COUNT 3.57 10^6/uL (4.00-5.40); WHITE BLOOD COUNT 11.2 10^3/uL (4.0-10.0)
[2023-05-11 18:54] LABS: LIPASE 32 U/L (12-53)
[2023-05-11 18:56] LABS: ALBUMIN 3.1 G/DL (3.2-5.2); ALKALINE PHOSPHATASE 71 U/L (46-116); ALT/SGPT 11 U/L (7.0-40); AST/SGOT < 8 U/L (<34); BILIRUBIN,DIRECT < 0.1 MG/DL (<0.4); BILIRUBIN,TOTAL 0.3 MG/DL (0.3-1.2); BLOOD UREA NITROGEN 6 MG/DL (9-23); CALCIUM LEVEL 8.6 MG/DL (8.5-10.1); CARBON DIOXIDE LEVEL 26 MMOL/L (20-31); CHLORIDE LEVEL 108 MMOL/L (98-107); CREATININE FOR GFR 0.51 MG/DL (0.55-1.30); GLOMERULAR FILTRATION RATE > 60.0 (>60); GLUCOSE, FASTING 82 MG/DL (60-100); POTASSIUM SERUM 3.7 MMOL/L (3.5-5.1); SODIUM LEVEL 138 MMOL/L (136-145); TOTAL PROTEIN 5.9 G/DL (5.7-8.2)
[2023-05-11] MEDS: NS 1,000 ML IV ONE (19:46)
[2023-05-11] MEDS: ONDANSETRON 4MG 2ML VIAL IV ONE (19:46)
[2023-05-11] MEDS: KETOROLAC 30 MG/ML 1ML VIAL IV ONE (19:47)
[2023-05-11] MEDS ORDERED: ONDA4TAB6 PO (22:01)
[2023-05-11] MEDS ORDERED: PERC5TAB12 PO (22:01)
[2023-05-11] MEDS ORDERED: AMOX875T2 PO (22:01)
[2023-05-11 22:02] VITALS: BP 117/66; TEMP 97.6; O2SAT 99
[2023-05-11] MEDS: AUGMENTIN 875 MG TAB PO ONE (22:06)
[2023-05-11] MEDS ORDERED: FLUC150T9 PO (22:09)
== END 2023-05-11 22:14 | disposition home or self-care (01) ==
LOC: M ED 17:19
DX: K80.00 Calculus of gallbladder with acute cholecystitis without obstruction (principal); F41.9 Anxiety disorder, unspecified; E03.9 Hypothyroidism, unspecified; F32.A Depression, unspecified; Z87.19 Personal history of other diseases of the digestive system; Z79.2 Long term (current) use of antibiotics; Z79.83 Long term (current) use of bisphosphonates; Z79.899 Other long term (current) drug therapy
CPT/HCPCS: 76705; 80048; 80076; 81001; 83690; 85025; 96361; 96374; 96375; 99284; J1885; J2405

== ENCOUNTER → 2023-05-14 | Outpatient (CLI) | payer OTHER ==
[~2023-05-14] MED LIST changes: +FLUC150T9 PO; +ONDA4TAB6 PO; +PERC5TAB12 PO
[2023-05-14 14:12] LABS: HEMATOCRIT 35.3 % (36.0-47.0); HEMOGLOBIN 11.9 g/dl (12.0-15.5); MEAN CORPUSCULAR HEMOGLOBIN 32.6 pg (27.0-33.0); MEAN CORPUSCULAR HGB CONC 33.7 g/dl (32.0-36.5); MEAN CORPUSCULAR VOLUME 96.7 fl (80.0-96.0); PLATELET COUNT, AUTOMATED 253 10^3/uL (150-450); RED BLOOD COUNT 3.65 10^6/uL (4.00-5.40)
[2023-05-14 14:17] LABS: FREE T4 0.87 NG/DL (0.89-1.76)
[2023-05-14 14:18] LABS: THYROID STIMULATING HORMONE 1.665 uIU/ML (0.55-4.78)
[2023-05-14 14:42] LABS: HIV 1&2 SCREEN NEGATIVE (NEGATIVE)
[2023-05-14 14:51] LABS: HEPATITIS C VIRUS ABY INDEX < 0.02 INDEX (<0.8)
[2023-05-14 15:08] LABS: GC DNA AMPLIFICATION NEGATIVE (NEGATIVE)
== END ==
LOC: M PLALAB 10:17
PROVIDERS: ATTEND Obstetrics & Gynecology
DX: Z34.92 Encounter for supervision of normal pregnancy, unspecified, second trimester (principal)

== ENCOUNTER 2023-06-03 17:15 | Emergency (ER) | payer OTHER ==
[2023-05-11 22:02] VITALS: O2SAT 99
[2023-06-03 17:17] VITALS: BP 137/85; TEMP 97.8
[2023-06-03] MEDS ORDERED: ACET-907 PO (17:52)
[2023-06-04] MEDS ORDERED: OXYC1TAB23 PO (04:22)
== END 2023-06-03 17:19 | disposition admitted as inpatient to this hospital (09) ==
LOC: M ED 17:15
DX: Z53.21 Procedure and treatment not carried out due to patient leaving prior to being seen by health care provider (principal)

== ENCOUNTER 2023-06-03 17:28 | Outpatient (CLI) | payer OTHER ==
[~2023-06-03] VITALS: Ht 165.1 cm; Wt 84.2 kg
[2023-06-03 17:44] VITALS: BP 121/73
[2023-06-03] MEDS ORDERED: ACET-907 PO (17:52)
[2023-06-03] MEDS: LACTATED RINGER'S 1000 ML IV STA (18:15)
[2023-06-03 18:44] LABS: BASO % 0.3 % (0.0-1.0); EOS # 0.4 10^3/uL (0.0-0.5); EOS % 3.1 % (0.0-3.0); LYMPH # 2.7 10^3/uL (1.5-5.0); LYMPH % 21.7 % (24.0-44.0); MEAN CORPUSCULAR HEMOGLOBIN 32.4 pg (27.0-33.0); MEAN CORPUSCULAR HGB CONC 34.3 g/dl (32.0-36.5); MEAN CORPUSCULAR VOLUME 94.6 fl (80.0-96.0); MONO # 0.8 10^3/uL (0.0-0.8); MONO % 6.5 % (2.0-8.0); NEUTROPHILS # 8.4 10^3/uL (1.5-8.5); NEUTROPHILS % 67.6 % (36.0-66.0); PLATELET COUNT, AUTOMATED 252 10^3/uL (150-450); WHITE BLOOD COUNT 12.5 10^3/uL (4.0-10.0)
[2023-06-03 18:47] LABS: AMORPHOUS SEDIMENT SMALL (NEGATIVE); APPEARANCE, URINE CLOUDY (CLEAR); BACTERIA, URINE AUTO 1+ (NEGATIVE); BILIRUBIN, URINE AUTO NEGATIVE (NEGATIVE); BLOOD, URINE BLOOD 1+ (NEGATIVE); COLOR, URINE YELLOW (YELLOW); GLUCOSE, URINE (UA) AUTO NEGATIVE (NEGATIVE); KETONE, URINE AUTO NEGATIVE (NEGATIVE); LEUKOCYTE ESTERASE, URINE AUTO NEGATIVE (NEGATIVE); MUCUS, URINE SMALL (NEGATIVE); NITRITE, URINE AUTO NEGATIVE (NEGATIVE); PROTEIN, URINE AUTO NEGATIVE (NEGATIVE); RBC, URINE AUTO 1 /HPF (0-3); SPECIFIC GRAVITY URINE AUTO 1.016 (1.002-1.035); SQUAMOUS EPITHELIAL CELL UR AU 24 /HPF (0-6); UROBILINOGEN, URINE AUTO 0.2 mg/dL (0.0-2.0); WBC, URINE AUTO 3 /HPF (0-3)
[2023-06-03] MEDS: LR 1,000 ML IV SCH (19:11)
[2023-06-03] MEDS: PERCOCET 5MG/325MG TAB PO PRN (19:11)
[2023-06-03 19:18] LABS: ALBUMIN 3.1 G/DL (3.2-5.2); ALKALINE PHOSPHATASE 81 U/L (46-116); ALT/SGPT < 9 U/L (7.0-40); AST/SGOT 29 U/L (<34); BILIRUBIN,TOTAL 0.4 MG/DL (0.3-1.2); BLOOD UREA NITROGEN < 5 MG/DL (9-23); CARBON DIOXIDE LEVEL 22 MMOL/L (20-31); CHLORIDE LEVEL 105 MMOL/L (98-107); CREATININE FOR GFR 0.47 MG/DL (0.55-1.30); GLOMERULAR FILTRATION RATE > 60.0 (>60); GLUCOSE, FASTING 70 MG/DL (60-100); LIPASE 30 U/L (12-53); SODIUM LEVEL 134 MMOL/L (136-145); TOTAL PROTEIN 6.3 G/DL (5.7-8.2)
[2023-06-04] MEDS ORDERED: OXYC1TAB23 PO (04:22)
== END 2023-06-03 21:19 | disposition home or self-care (01) ==
LOC: M LDO 17:28
PROVIDERS: ATTEND Specialist
DX: O99.612 Diseases of the digestive system complicating pregnancy, second trimester (principal); K81.0 Acute cholecystitis; Z3A.21 21 weeks gestation of pregnancy
CPT/HCPCS: 80053; 81001; 83690; 85025; G0463

== ENCOUNTER 2023-06-12 20:13 | Outpatient (CLI) | payer OTHER ==
[~2023-06-12] VITALS: Ht 165.1 cm; Wt 84.4 kg
[~2023-06-12 20:13] MED LIST changes: +ACET-907 PO; +OXYC1TAB23 PO
[2023-06-12 20:26] VITALS: O2SAT 98
[2023-06-12 20:30] VITALS: BP 112/60
[2023-06-12] MEDS: oxyCODONE 5MG TAB PO ONE (20:39)
[2023-06-13] MEDS ORDERED: PERC5TAB12 PO (00:56)
== END 2023-06-12 20:56 | disposition home or self-care (01) ==
LOC: M LDO 20:13
PROVIDERS: ATTEND Obstetrics & Gynecology
DX: O99.613 Diseases of the digestive system complicating pregnancy, third trimester (principal); K81.0 Acute cholecystitis; Z3A.22 22 weeks gestation of pregnancy
CPT/HCPCS: 59025; G0463

== ENCOUNTER 2023-06-12 21:51 | Emergency (ER) | payer OTHER ==
[~2023-06-12] VITALS: Ht 165.1 cm; Wt 83.8 kg
[2023-06-12 23:52] LABS: BASO % 0.2 % (0.0-1.0); EOS # 0.3 10^3/uL (0.0-0.5); EOS % 2.8 % (0.0-3.0); HEMATOCRIT 34.5 % (36.0-47.0); HEMOGLOBIN 12.1 g/dl (12.0-15.5); LYMPH # 3.3 10^3/uL (1.5-5.0); MEAN CORPUSCULAR HEMOGLOBIN 32.7 pg (27.0-33.0); MEAN CORPUSCULAR HGB CONC 35.1 g/dl (32.0-36.5); MEAN CORPUSCULAR VOLUME 93.2 fl (80.0-96.0); MONO # 0.6 10^3/uL (0.0-0.8); MONO % 5.1 % (2.0-8.0); NEUTROPHILS # 7.7 10^3/uL (1.5-8.5); NEUTROPHILS % 64.2 % (36.0-66.0); PLATELET COUNT, AUTOMATED 305 10^3/uL (150-450); WHITE BLOOD COUNT 12.1 10^3/uL (4.0-10.0)
[2023-06-13 00:08] LABS: LIPASE 25 U/L (12-53)
[2023-06-13 00:10] LABS: ALKALINE PHOSPHATASE 97 U/L (46-116); ALT/SGPT 13 U/L (7.0-40); AST/SGOT 10 U/L (<34); BILIRUBIN,DIRECT 0.1 MG/DL (<0.4); BILIRUBIN,TOTAL 0.4 MG/DL (0.3-1.2); BLOOD UREA NITROGEN 7 MG/DL (9-23); CALCIUM LEVEL 9.3 MG/DL (8.5-10.1); CARBON DIOXIDE LEVEL 25 MMOL/L (20-31); CHLORIDE LEVEL 104 MMOL/L (98-107); CREATININE FOR GFR 0.53 MG/DL (0.55-1.30); GLOMERULAR FILTRATION RATE > 60.0 (>60); GLUCOSE, FASTING 78 MG/DL (60-100); POTASSIUM SERUM 3.6 MMOL/L (3.5-5.1); SODIUM LEVEL 137 MMOL/L (136-145); TOTAL PROTEIN 6.2 G/DL (5.7-8.2)
[2023-06-13] MEDS ORDERED: PERC5TAB12 PO (00:56)
[2023-06-13] MEDS: OXYCODONE/APAP 5MG/325MG(HOME DOSE PACK) PO ONE (02:05)
[2023-06-13 02:21] VITALS: BP 121/71; TEMP 97.8; O2SAT 99
== END 2023-06-13 02:27 | disposition home or self-care (01) ==
LOC: M ED 21:51
DX: O26.612 Liver and biliary tract disorders in pregnancy, second trimester (principal); F41.9 Anxiety disorder, unspecified; F32.A Depression, unspecified; F17.200 Nicotine dependence, unspecified, uncomplicated; Z87.19 Personal history of other diseases of the digestive system; Z3A.22 22 weeks gestation of pregnancy; Z79.810 Long term (current) use of selective estrogen receptor modulators (SERMs); Z79.899 Other long term (current) drug therapy

== ENCOUNTER → 2023-06-16 | Outpatient (REF) | payer OTHER | LOC: M PLALAB 10:53 | PROVIDERS: ATTEND Advanced Practice Midwife | DX: Z34.92 Encounter for supervision of normal pregnancy, unspecified, second trimester (principal); E06.3 Autoimmune thyroiditis ==

== ENCOUNTER → 2023-06-20 | Outpatient (CLI) | payer OTHER | LOC: M RAD 12:36 | PROVIDERS: ATTEND Obstetrics & Gynecology | DX: Z34.92 Encounter for supervision of normal pregnancy, unspecified, second trimester (principal) ==

== ENCOUNTER 2023-06-27 17:29 | Emergency (ER) | payer OTHER ==
[~2023-06-27] VITALS: Ht 165.1 cm; Wt 85.1 kg
[2023-06-27 17:30] VITALS: BP 118/65; TEMP 97; O2SAT 99
[2023-06-27] MEDS ORDERED: LEVO50TA5 (17:39)
[2023-06-27] MEDS ORDERED: URSO300C3 (17:39)
[2023-06-27] MEDS ORDERED: URSO300C3 PO (18:11)
== END 2023-06-27 17:41 | disposition admitted as inpatient to this hospital (09) ==
LOC: M ED 17:29
DX: Z53.21 Procedure and treatment not carried out due to patient leaving prior to being seen by health care provider (principal)

== ENCOUNTER 2023-06-27 17:46 | Outpatient (CLI) | payer OTHER ==
[~2023-06-27] VITALS: Ht 166.4 cm; Wt 83.2 kg
[~2023-06-27 17:46] MED LIST changes: +LEVO50TA5; +URSO300C3
[2023-06-27] MEDS ORDERED: URSO300C3 PO (18:11)
[2023-06-27] MEDS ORDERED: HOME MED LIST COMPLETE! XX SCH (18:15)
[2023-06-27 18:16] VITALS: BP 111/65
[2023-06-27 19:13] LABS: HEMATOCRIT 33.7 % (36.0-47.0); HEMOGLOBIN 11.6 g/dl (12.0-15.5); MEAN CORPUSCULAR HEMOGLOBIN 32.2 pg (27.0-33.0); MEAN CORPUSCULAR HGB CONC 34.4 g/dl (32.0-36.5); MEAN CORPUSCULAR VOLUME 93.6 fl (80.0-96.0); PLATELET COUNT, AUTOMATED 256 10^3/uL (150-450); WHITE BLOOD COUNT 12.5 10^3/uL (4.0-10.0)
[2023-06-27 19:46] LABS: ALBUMIN 2.7 G/DL (3.2-5.2); ALKALINE PHOSPHATASE 80 U/L (46-116); ALT/SGPT 11 U/L (7.0-40); AST/SGOT < 8 U/L (<34); BILIRUBIN,TOTAL 0.3 MG/DL (0.3-1.2); BLOOD UREA NITROGEN 5 MG/DL (9-23); CALCIUM LEVEL 8.6 MG/DL (8.5-10.1); CARBON DIOXIDE LEVEL 25 MMOL/L (20-31); CHLORIDE LEVEL 107 MMOL/L (98-107); CREATININE FOR GFR 0.46 MG/DL (0.55-1.30); GLOMERULAR FILTRATION RATE > 60.0 (>60); GLUCOSE, FASTING 74 MG/DL (60-100); POTASSIUM SERUM 3.8 MMOL/L (3.5-5.1); SODIUM LEVEL 138 MMOL/L (136-145); TOTAL PROTEIN 5.9 G/DL (5.7-8.2)
[2023-06-27 20:40] LABS: LIPASE 25 U/L (12-53)
[2023-06-27 20:42] LABS: AMYLASE 61 U/L (30-118)
[2023-06-27] MEDS: PERCOCET 5MG/325MG TAB PO ONE (22:38)
== END 2023-06-27 22:37 | disposition home or self-care (01) ==
LOC: M LDO 17:46
PROVIDERS: ATTEND Advanced Practice Midwife
DX: O99.612 Diseases of the digestive system complicating pregnancy, second trimester (principal); O99.282 Endocrine, nutritional and metabolic diseases complicating pregnancy, second trimester; K80.00 Calculus of gallbladder with acute cholecystitis without obstruction; E06.3 Autoimmune thyroiditis; Z3A.24 24 weeks gestation of pregnancy
CPT/HCPCS: 36415; 59025; 76705; 80053; 82150; 83690; 85027; G0463

== ENCOUNTER 2023-07-06 22:14 | Outpatient (CLI) | payer OTHER ==
[~2023-07-06] VITALS: Ht 165.1 cm; Wt 87.1 kg
[~2023-07-06 22:14] MED LIST changes: +URSO300C3 PO
[2023-07-06 22:30] VITALS: BP 115/57
[2023-07-06] MEDS: LACTATED RINGER'S 1000 ML IV STA (22:58)
[2023-07-06 23:10] LABS: BASO % 0.4 % (0.0-1.0); EOS # 0.4 10^3/uL (0.0-0.5); EOS % 3.8 % (0.0-3.0); HEMATOCRIT 32.3 % (36.0-47.0); HEMOGLOBIN 11.2 g/dl (12.0-15.5); LYMPH # 2.1 10^3/uL (1.5-5.0); LYMPH % 20.1 % (24.0-44.0); MEAN CORPUSCULAR HEMOGLOBIN 32.5 pg (27.0-33.0); MEAN CORPUSCULAR HGB CONC 34.7 g/dl (32.0-36.5); MEAN CORPUSCULAR VOLUME 93.6 fl (80.0-96.0); MONO # 0.9 10^3/uL (0.0-0.8); MONO % 8.8 % (2.0-8.0); NEUTROPHILS # 6.8 10^3/uL (1.5-8.5); NEUTROPHILS % 65.8 % (36.0-66.0); PLATELET COUNT, AUTOMATED 234 10^3/uL (150-450); RED BLOOD COUNT 3.45 10^6/uL (4.00-5.40); WHITE BLOOD COUNT 10.3 10^3/uL (4.0-10.0)
[2023-07-06] MEDS ORDERED: HOME MED LIST COMPLETE! XX SCH (23:10)
[2023-07-06] MEDS: ONDANSETRON 4MG ORAL DISINTEGRATING TAB PO PRN (23:22)
[2023-07-06] MEDS: oxyCODONE 5MG TAB PO PRN (23:22)
[2023-07-06 23:32] LABS: LIPASE 30 U/L (12-53)
[2023-07-06 23:35] LABS: ALBUMIN 2.7 G/DL (3.2-5.2); ALKALINE PHOSPHATASE 85 U/L (46-116); ALT/SGPT 10 U/L (7.0-40); AST/SGOT 10 U/L (<34); BILIRUBIN,TOTAL 0.4 MG/DL (0.3-1.2); BLOOD UREA NITROGEN 6 MG/DL (9-23); CALCIUM LEVEL 8.6 MG/DL (8.5-10.1); CARBON DIOXIDE LEVEL 23 MMOL/L (20-31); CHLORIDE LEVEL 106 MMOL/L (98-107); CREATININE FOR GFR 0.49 MG/DL (0.55-1.30); GLOMERULAR FILTRATION RATE > 60.0 (>60); GLUCOSE, FASTING 91 MG/DL (60-100); POTASSIUM SERUM 3.5 MMOL/L (3.5-5.1); SODIUM LEVEL 137 MMOL/L (136-145); TOTAL PROTEIN 5.5 G/DL (5.7-8.2)
[2023-07-07] MEDS: LR 1,000 ML IV SCH (00:03)
== END 2023-07-07 02:13 | disposition home or self-care (01) ==
LOC: M LDO 22:14
PROVIDERS: ATTEND Specialist
DX: O99.62 Diseases of the digestive system complicating childbirth (principal); K80.00 Calculus of gallbladder with acute cholecystitis without obstruction; Z3A.25 25 weeks gestation of pregnancy
CPT/HCPCS: 59025; 80053; 81001; 83690; 85025; 96360; G0463

== ENCOUNTER 2023-07-13 17:46 | Outpatient (CLI) | payer OTHER ==
[~2023-07-13] VITALS: Ht 165.1 cm; Wt 86.2 kg
[2023-07-13] MEDS ORDERED: LEVO50TA5 PO (18:01)
[2023-07-13 18:03] VITALS: BP 102/59
[2023-07-13] MEDS ORDERED: HOME MED LIST COMPLETE! XX SCH (18:05)
[2023-07-13 20:06] LABS: BASO % 0.3 % (0.0-1.0); EOS # 0.3 10^3/uL (0.0-0.5); EOS % 2.3 % (0.0-3.0); HEMATOCRIT 35.1 % (36.0-47.0); HEMOGLOBIN 11.9 g/dl (12.0-15.5); LYMPH # 2.9 10^3/uL (1.5-5.0); LYMPH % 23.3 % (24.0-44.0); MEAN CORPUSCULAR HEMOGLOBIN 32.2 pg (27.0-33.0); MEAN CORPUSCULAR HGB CONC 33.9 g/dl (32.0-36.5); MEAN CORPUSCULAR VOLUME 94.9 fl (80.0-96.0); MONO # 0.7 10^3/uL (0.0-0.8); MONO % 5.7 % (2.0-8.0); NEUTROPHILS # 8.3 10^3/uL (1.5-8.5); NEUTROPHILS % 67.2 % (36.0-66.0); PLATELET COUNT, AUTOMATED 247 10^3/uL (150-450); WHITE BLOOD COUNT 12.3 10^3/uL (4.0-10.0)
[2023-07-13 20:18] LABS: ALBUMIN 2.9 G/DL (3.2-5.2); ALKALINE PHOSPHATASE 93 U/L (46-116); ALT/SGPT 14 U/L (7.0-40); AST/SGOT < 8 U/L (<34); BILIRUBIN,TOTAL 0.4 MG/DL (0.3-1.2); BLOOD UREA NITROGEN < 5 MG/DL (9-23); CALCIUM LEVEL 8.5 MG/DL (8.5-10.1); CARBON DIOXIDE LEVEL 24 MMOL/L (20-31); CHLORIDE LEVEL 108 MMOL/L (98-107); CREATININE FOR GFR 0.51 MG/DL (0.55-1.30); GLOMERULAR FILTRATION RATE > 60.0 (>60); GLUCOSE, FASTING 74 MG/DL (60-100); POTASSIUM SERUM 3.9 MMOL/L (3.5-5.1); SODIUM LEVEL 138 MMOL/L (136-145)
[2023-07-13] MEDS ORDERED: OXYC-517 PO (21:59)
== END 2023-07-13 21:55 | disposition home or self-care (01) ==
LOC: M LDO 17:46
PROVIDERS: ATTEND Obstetrics & Gynecology
DX: O99.612 Diseases of the digestive system complicating pregnancy, second trimester (principal); K80.00 Calculus of gallbladder with acute cholecystitis without obstruction; Z3A.26 26 weeks gestation of pregnancy
CPT/HCPCS: 59025; 76705; 80053; 82977; 85025; G0463

== ENCOUNTER 2023-07-19 16:29 | Outpatient (CLI) | payer OTHER ==
[~2023-07-19] VITALS: Ht 165.1 cm; Wt 86.8 kg
[~2023-07-19 16:29] MED LIST changes: +LEVO50TA5 PO; +ONDA-282 PO; -ONDA4TAB6 PO; +OXYC-517 PO
[2023-07-19] MEDS: BICITRA 30ML SOLN UDC PO ONE (17:20)
[2023-07-19] MEDS: PERCOCET 5MG/325MG TAB PO ONE (17:20)
== END 2023-07-19 18:30 | disposition home or self-care (01) ==
LOC: M LDO 16:29
PROVIDERS: ATTEND Obstetrics & Gynecology
DX: O99.612 Diseases of the digestive system complicating pregnancy, second trimester (principal); K80.20 Calculus of gallbladder without cholecystitis without obstruction; Z3A.27 27 weeks gestation of pregnancy; Z79.890 Hormone replacement therapy
CPT/HCPCS: 59025; G0463

== ENCOUNTER 2023-08-04 20:00 | Outpatient (CLI) | payer OTHER ==
[~2023-08-04] VITALS: Ht 165.1 cm; Wt 87.5 kg
[2023-08-04 20:13] VITALS: BP 121/69
[2023-08-04] MEDS: BICITRA 30ML SOLN UDC PO ONE (20:40)
[2023-08-04] MEDS: PERCOCET 5MG/325MG TAB PO ONE (20:40)
[2023-08-04 21:03] LABS: HEMATOCRIT 33.3 % (36.0-47.0); HEMOGLOBIN 11.5 g/dl (12.0-15.5); MEAN CORPUSCULAR HEMOGLOBIN 32.3 pg (27.0-33.0); MEAN CORPUSCULAR HGB CONC 34.5 g/dl (32.0-36.5); MEAN CORPUSCULAR VOLUME 93.5 fl (80.0-96.0); PLATELET COUNT, AUTOMATED 244 10^3/uL (150-450); RED BLOOD COUNT 3.56 10^6/uL (4.00-5.40); WHITE BLOOD COUNT 11.9 10^3/uL (4.0-10.0)
[2023-08-04 21:25] LABS: ALBUMIN 2.7 G/DL (3.2-5.2); ALKALINE PHOSPHATASE 110 U/L (46-116); ALT/SGPT 12 U/L (7.0-40); AST/SGOT < 8 U/L (<34); BILIRUBIN,TOTAL 0.4 MG/DL (0.3-1.2); BLOOD UREA NITROGEN 6 MG/DL (9-23); CALCIUM LEVEL 9.5 MG/DL (8.5-10.1); CARBON DIOXIDE LEVEL 25 MMOL/L (20-31); CHLORIDE LEVEL 107 MMOL/L (98-107); CREATININE FOR GFR 0.51 MG/DL (0.55-1.30); GLOMERULAR FILTRATION RATE > 60.0 (>60); GLUCOSE, FASTING 109 MG/DL (60-100); POTASSIUM SERUM 3.5 MMOL/L (3.5-5.1); SODIUM LEVEL 139 MMOL/L (136-145); TOTAL PROTEIN 5.8 G/DL (5.7-8.2)
[2023-08-04] MEDS ORDERED: FAMO40TA3 PO (21:47)
== END 2023-08-04 21:40 | disposition home or self-care (01) ==
LOC: M LDO 20:00
PROVIDERS: ATTEND Advanced Practice Midwife
DX: O99.613 Diseases of the digestive system complicating pregnancy, third trimester (principal); O99.283 Endocrine, nutritional and metabolic diseases complicating pregnancy, third trimester; K80.50 Calculus of bile duct without cholangitis or cholecystitis without obstruction; E06.3 Autoimmune thyroiditis; Z3A.30 30 weeks gestation of pregnancy
CPT/HCPCS: 36415; 59025; 80053; 85027; G0463

== ENCOUNTER → 2023-09-15 | Outpatient (CLI) | payer OTHER ==
[~2023-09-15] MED LIST changes: +FAMO40TA3 PO
== END ==
LOC: M WHC 08:06
PROVIDERS: ATTEND Advanced Practice Midwife
DX: Z34.82 Encounter for supervision of other normal pregnancy, second trimester (principal)

== ENCOUNTER → 2023-09-16 | Outpatient (REF) | payer OTHER | LOC: M SFHCWAGY 10:32 | PROVIDERS: ATTEND Specialist | DX: Z34.83 Encounter for supervision of other normal pregnancy, third trimester (principal); Z36.85 Encounter for antenatal screening for Streptococcus B ==

== ENCOUNTER 2023-11-08 11:46 | Emergency (ER) | payer OTHER ==
[~2023-11-08] VITALS: Ht 165.1 cm; Wt 87.7 kg
[2023-11-08] MEDS ORDERED: FAMO1TAB11 (11:54)
[2023-11-08 13:17] LABS: BASO % 0.4 % (0.0-1.0); EOS # 0.5 10^3/uL (0.0-0.5); EOS % 6.4 % (0.0-3.0); HEMATOCRIT 38.1 % (36.0-47.0); HEMOGLOBIN 12.8 g/dl (12.0-15.5); LYMPH # 2.8 10^3/uL (1.5-5.0); LYMPH % 35.7 % (24.0-44.0); MEAN CORPUSCULAR HEMOGLOBIN 31.8 pg (27.0-33.0); MEAN CORPUSCULAR HGB CONC 33.6 g/dl (32.0-36.5); MEAN CORPUSCULAR VOLUME 94.8 fl (80.0-96.0); MONO # 0.6 10^3/uL (0.0-0.8); MONO % 8.1 % (2.0-8.0); NEUTROPHILS # 3.8 10^3/uL (1.5-8.5); NEUTROPHILS % 48.6 % (36.0-66.0); PLATELET COUNT, AUTOMATED 264 10^3/uL (150-450); RED BLOOD COUNT 4.02 10^6/uL (4.00-5.40); WHITE BLOOD COUNT 7.8 10^3/uL (4.0-10.0)
[2023-11-08 13:44] LABS: LIPASE 26 U/L (12-53)
[2023-11-08 13:46] LABS: ALBUMIN 3.6 G/DL (3.2-5.2); ALKALINE PHOSPHATASE 106 U/L (46-116); ALT/SGPT 72 U/L (7.0-40); AST/SGOT 27 U/L (<34); BILIRUBIN,DIRECT 0.1 MG/DL (<0.4); BILIRUBIN,TOTAL 0.5 MG/DL (0.3-1.2); BLOOD UREA NITROGEN 11 MG/DL (9-23); CALCIUM LEVEL 9.6 MG/DL (8.5-10.1); CARBON DIOXIDE LEVEL 27 MMOL/L (20-31); CHLORIDE LEVEL 106 MMOL/L (98-107); CREATININE FOR GFR 0.61 MG/DL (0.55-1.30); GLOMERULAR FILTRATION RATE > 60.0 (>60); GLUCOSE, FASTING 91 MG/DL (60-100); MAGNESIUM LEVEL 1.8 MG/DL (1.8-2.4); POTASSIUM SERUM 4.2 MMOL/L (3.5-5.1); SODIUM LEVEL 138 MMOL/L (136-145); TOTAL PROTEIN 6.8 G/DL (5.7-8.2)
[2023-11-08 13:48] LABS: THYROID STIMULATING HORMONE 0.017 uIU/ML (0.55-4.78)
[2023-11-08 13:58] LABS: HCG, SERUM QUALITATIVE NEGATIVE (NEGATIVE)
[2023-11-08] MEDS ORDERED: CEFD1CAP9 PO (16:31)
[2023-11-08] MEDS: CEFDINIR 300 MG CAP (OMNICEF) PO ONE (16:58)
[2023-11-08 17:59] VITALS: BP 122/82; TEMP 97.8; O2SAT 97
== END 2023-11-08 17:59 | disposition home or self-care (01) ==
LOC: M ED 11:46
DX: N30.01 Acute cystitis with hematuria (principal); E06.3 Autoimmune thyroiditis; Z79.2 Long term (current) use of antibiotics; Z79.899 Other long term (current) drug therapy

== ENCOUNTER 2023-11-19 08:44 | Day surgery (SDC) | payer OTHER ==
[~2023-11-19] VITALS: Ht 165.1 cm; Wt 87.1 kg
[~2023-11-19 08:44] MED LIST changes: +CEFD1CAP9 PO; +FAMO1TAB11; +LIDOCAINE 2% 100MG/5ML SDV (FOR ANES.) As Ordered ONE; +MIDAZOLAM INJ 2MG/2ML VIAL As Ordered ONE; +ROCURONIUM BROMIDE 50MG/5ML VIAL As Ordered ONE; +fentaNYL 100 MCG/2 ML INJECTION As Ordered ONE; +propofoL 200 MG/20 ML VIAL As Ordered ONE
[2023-11-19] MEDS ORDERED: ONDANSETRON 4MG 2ML VIAL As Ordered ONE (09:32)
[2023-11-19] MEDS ORDERED: ACETAMINOPHEN 1000MG 100ML IV BAG As Ordered ONE (09:33)
[2023-11-19] MEDS ORDERED: HYDROmorphone HCL 2MG/ML 1ML VIAL As Ordered ONE (09:43)
[2023-11-19] MEDS ORDERED: PHENYLephrine 500MCG 5ML (100MCG/ML) SYRINGE As Ordered ONE (09:49)
[2023-11-19] MEDS ORDERED: KETOROLAC 60MG 2ML VIAL As Ordered ONE (09:52)
[2023-11-19] MEDS ORDERED: fentaNYL 100 MCG/2 ML INJECTION IV PRN (10:35)
[2023-11-19] MEDS ORDERED: LR 1,000 ML IV SCH (10:35)
[2023-11-19] MEDS: HYDROMORPHONE HCL 0.5 MG/ 0.5 ML SYRINGE IV PRN (10:48)
[2023-11-19] MEDS: oxyCODONE 5MG TAB PO PRN (10:48)
[2023-11-19] MEDS: ONDANSETRON 4MG 2ML VIAL IV PRN (10:49)
[2023-11-19] MEDS ORDERED: NORCO, ANEXSIA 5/325MG TABLET (HYDROcodone/ACETAMINOPHEN) PO PRN (10:50)
[2023-11-19 12:10] VITALS: BP 138/69; TEMP 97.3; O2SAT 96
== END 2023-11-19 12:55 | disposition home or self-care (01) ==
LOC: M SDC 08:44
PROVIDERS: ATTEND Surgery
DX: K80.10 Calculus of gallbladder with chronic cholecystitis without obstruction (principal); G47.30 Sleep apnea, unspecified; Z79.899 Other long term (current) drug therapy; Z87.891 Personal history of nicotine dependence
CPT/HCPCS: 47562; 81025; 88304; J0131; J0665; J1100; J1171; J1885; J2250; J2371; J2405; J3010; S2900

== ENCOUNTER → 2023-12-03 | Outpatient (CLI) | payer OTHER ==
[~2023-12-03] MED LIST changes: -LIDOCAINE 2% 100MG/5ML SDV (FOR ANES.) As Ordered ONE; -MIDAZOLAM INJ 2MG/2ML VIAL As Ordered ONE; -ROCURONIUM BROMIDE 50MG/5ML VIAL As Ordered ONE; -fentaNYL 100 MCG/2 ML INJECTION As Ordered ONE; -propofoL 200 MG/20 ML VIAL As Ordered ONE
[2023-12-03 15:20] LABS: HEMATOCRIT 40.4 % (36.0-47.0); HEMOGLOBIN 13.8 g/dl (12.0-15.5); MEAN CORPUSCULAR HEMOGLOBIN 32.4 pg (27.0-33.0); MEAN CORPUSCULAR HGB CONC 34.2 g/dl (32.0-36.5); MEAN CORPUSCULAR VOLUME 94.8 fl (80.0-96.0); PLATELET COUNT, AUTOMATED 388 10^3/uL (150-450); RED BLOOD COUNT 4.26 10^6/uL (4.00-5.40); WHITE BLOOD COUNT 9.7 10^3/uL (4.0-10.0)
[2023-12-03 15:42] LABS: ALBUMIN 3.8 G/DL (3.2-5.2); ALKALINE PHOSPHATASE 91 U/L (46-116); ALT/SGPT 86 U/L (7.0-40); AST/SGOT 34 U/L (<34); BILIRUBIN,TOTAL 0.3 MG/DL (0.3-1.2); BLOOD UREA NITROGEN 11 MG/DL (9-23); CARBON DIOXIDE LEVEL 30 MMOL/L (20-31); CHLORIDE LEVEL 106 MMOL/L (98-107); CREATININE FOR GFR 0.65 MG/DL (0.55-1.30); GLOMERULAR FILTRATION RATE > 60.0 (>60); GLUCOSE, FASTING 80 MG/DL (60-100); POTASSIUM SERUM 4.4 MMOL/L (3.5-5.1); SODIUM LEVEL 140 MMOL/L (136-145); TOTAL PROTEIN 7.3 G/DL (5.7-8.2)
== END ==
LOC: M LAB 14:00
PROVIDERS: ATTEND Physician Assistant
DX: R10.30 Lower abdominal pain, unspecified (principal)

== ENCOUNTER 2024-10-23 08:28 | Emergency (ER) | payer OTHER ==
[~2024-10-23] VITALS: Ht 165.1 cm; Wt 94.4 kg
[~2024-10-23 08:28] MED LIST changes: -IBUP-1022 PO; +IBUP600T42 PO
[2024-10-23] MEDS ORDERED: LEVO75TA4 (08:36)
[2024-10-23] MEDS ORDERED: ISIB1TAB (08:36)
[2024-10-23] MEDS ORDERED: VITA400T (08:36)
[2024-10-23] MEDS ORDERED: ERGO500029 (08:36)
[2024-10-23 10:05] LABS: BASO # 0.1 10^3/uL (0.0-0.2); BASO % 0.5 % (0.0-1.0); EOS # 0.5 10^3/uL (0.0-0.5); EOS % 5.0 % (0.0-3.0); LYMPH # 2.9 10^3/uL (1.5-5.0); LYMPH % 31.3 % (24.0-44.0); MONO # 0.8 10^3/uL (0.0-0.8); MONO % 8.1 % (2.0-8.0); NEUTROPHILS # 5.1 10^3/uL (1.5-8.5); NEUTROPHILS % 54.7 % (36.0-66.0); PLATELET COUNT, AUTOMATED 277 10^3/uL (150-450)
[2024-10-23 10:14] LABS: APPEARANCE, URINE CLOUDY (CLEAR); BACTERIA, URINE AUTO 1+ (NEGATIVE); BILIRUBIN, URINE AUTO NEGATIVE (NEGATIVE); BLOOD, URINE BLOOD 3+ (NEGATIVE); GLUCOSE, URINE (UA) AUTO NEGATIVE (NEGATIVE); KETONE, URINE AUTO NEGATIVE (NEGATIVE); LEUKOCYTE ESTERASE, URINE AUTO 1+ (NEGATIVE); MUCUS, URINE SMALL (NEGATIVE); NITRITE, URINE AUTO NEGATIVE (NEGATIVE); PROTEIN, URINE AUTO 2+ mg/dL (NEGATIVE); RBC, URINE AUTO TNTC /HPF (0-3); SPECIFIC GRAVITY URINE AUTO 1.020 (1.002-1.035); SQUAMOUS EPITHELIAL CELL UR AU 25 /HPF (0-6); UROBILINOGEN, URINE AUTO 0.2 mg/dL (0.0-2.0); WBC, URINE AUTO 19 /HPF (0-3)
[2024-10-23 10:27] LABS: ALT/SGPT 82 U/L (7.0-40); AST/SGOT 57 U/L (<34); CALCIUM LEVEL 9.7 MG/DL (8.5-10.1); CARBON DIOXIDE LEVEL 25 MMOL/L (20-31); CHLORIDE LEVEL 106 MMOL/L (98-107); CREATININE FOR GFR 0.74 MG/DL (0.55-1.30); GLOMERULAR FILTRATION RATE > 90.0 (>60); HCG, SERUM QUALITATIVE NEGATIVE (NEGATIVE); POTASSIUM SERUM 4.5 MMOL/L (3.5-5.1); SODIUM LEVEL 141 MMOL/L (136-145)
[2024-10-23] MEDS ORDERED: SULF1TAB23 PO (12:18)
[2024-10-23 12:26] VITALS: BP 141/89; TEMP 98.6; O2SAT 98
== END 2024-10-23 12:40 | disposition home or self-care (01) ==
LOC: M ED 08:28
DX: D25.9 Leiomyoma of uterus, unspecified (principal); E06.3 Autoimmune thyroiditis; A69.22 Other neurologic disorders in Lyme disease; Z79.3 Long term (current) use of hormonal contraceptives; Z79.899 Other long term (current) drug therapy

== ENCOUNTER → 2024-11-03 | Outpatient (CLI) | payer OTHER ==
[~2024-11-03] MED LIST changes: +ERGO500029; +ISIB1TAB; +LEVO75TA4; +SULF1TAB23 PO; +VITA400T
[2024-11-03 17:04] LABS: FREE T4 0.94 NG/DL (0.89-1.76)
[2024-11-03 17:05] LABS: TOTAL 25(OH) VITAMIN D 25.7 NG/ML (20.0-100.0)
== END ==
LOC: M LAB 15:33
PROVIDERS: ATTEND Nurse Practitioner Family
DX: E06.3 Autoimmune thyroiditis (principal); E55.9 Vitamin D deficiency, unspecified

== ENCOUNTER → 2024-12-01 | Outpatient (CLI) | payer OTHER ==
[2024-12-01 07:27] LABS: BASO # 0.1 10^3/uL (0.0-0.2); BASO % 0.8 % (0.0-1.0); EOS # 0.5 10^3/uL (0.0-0.5); EOS % 5.8 % (0.0-3.0); LYMPH # 2.5 10^3/uL (1.5-5.0); LYMPH % 32.3 % (24.0-44.0); MONO # 0.5 10^3/uL (0.0-0.8); MONO % 6.2 % (2.0-8.0); NEUTROPHILS # 4.2 10^3/uL (1.5-8.5); NEUTROPHILS % 54.5 % (36.0-66.0); PLATELET COUNT, AUTOMATED 270 10^3/uL (150-450)
[2024-12-01 07:56] LABS: ALT/SGPT 104 U/L (7.0-40); AST/SGOT 70 U/L (<34); CALCIUM LEVEL 9.1 MG/DL (8.5-10.1); CARBON DIOXIDE LEVEL 27 MMOL/L (20-31); CHLORIDE LEVEL 105 MMOL/L (98-107); CHOLESTEROL LEVEL 218 MG/DL (<200); CHOLESTEROL RISK RATIO 3.54 (<5); CREATININE FOR GFR 0.79 MG/DL (0.55-1.30); GLOMERULAR FILTRATION RATE > 90.0 (>60); LDL CHOLESTEROL 115.3 MG/DL (<100); NON-HDL-C 156.5 MG/DL; POTASSIUM SERUM 4.6 MMOL/L (3.5-5.1); SODIUM LEVEL 142 MMOL/L (136-145); TRIGLYCERIDES LEVEL 206 MG/DL (<150)
[2024-12-01 07:58] LABS: FREE T4 0.93 NG/DL (0.89-1.76); TOTAL 25(OH) VITAMIN D 27.2 NG/ML (20.0-100.0)
[2024-12-01 08:03] LABS: ESTIMATED AVERAGE GLUCOSE 97.0 MG/DL (60-110)
== END ==
LOC: M LAB 06:41
DX: Z00.8 Encounter for other general examination (principal); I10 Essential (primary) hypertension; E03.9 Hypothyroidism, unspecified; E55.9 Vitamin D deficiency, unspecified

== ENCOUNTER 2025-01-17 09:16 | Day surgery (SDC) | payer OTHER ==
[~2025-01-17] VITALS: Ht 165.1 cm; Wt 94.4 kg
[~2025-01-17 09:16] MED LIST changes: -ERGO500029; +ERGO500029 PO; -ISIB1TAB; +LABE100T40 PO; +LABE100T91 PO; +LEVO100T5 PO; +SULF-7 PO; -SULF1TAB23 PO; +VITA200030 PO
[2025-01-17] MEDS ORDERED: LIDOCAINE 2% 100 MG/5 ML SDV (FOR ANES.) As Ordered ONE (09:23)
[2025-01-17] MEDS ORDERED: KETOROLAC 30 MG/ML 1 ML VIAL As Ordered ONE (09:23)
[2025-01-17] MEDS ORDERED: ONDANSETRON 4MG/2ML VIAL As Ordered ONE (09:23)
[2025-01-17] MEDS ORDERED: MIDAZOLAM INJ 2 MG/2 ML VIAL As Ordered ONE (09:25)
[2025-01-17] MEDS ORDERED: dexAMETHasone 4 MG/ML 1 ML VIAL As Ordered ONE (09:28)
[2025-01-17] MEDS: LR 1,000 ML IV SCH (10:40)
[2025-01-17] MEDS ORDERED: IBUP600T42 PO (10:50)
[2025-01-17] MEDS ORDERED: ROCURONIUM BROMIDE 50MG/5ML VIAL As Ordered ONE (10:50)
[2025-01-17] MEDS ORDERED: OXYC1TAB23 PO (10:51)
[2025-01-17 11:04] LABS: PLATELET COUNT, AUTOMATED 289 10^3/uL (150-450)
[2025-01-17] MEDS ORDERED: SUGAMMADEX SODIUM 200 MG/2 ML VIAL As Ordered ONE (11:20)
[2025-01-17] MEDS ORDERED: MORPHINE 2 MG/ML 1 ML VIAL IV PRN (11:40)
[2025-01-17] MEDS ORDERED: HYDROMORPHONE HCL 0.5 MG/0.5 ML SYRINGE IV PRN (11:40)
[2025-01-17 12:39] VITALS: BP 129/83; TEMP 97.9; O2SAT 98
== END 2025-01-17 12:54 | disposition home or self-care (01) ==
LOC: M SDC 09:16
PROVIDERS: ATTEND Specialist
DX: Z30.2 Encounter for sterilization (principal); I10 Essential (primary) hypertension; E06.3 Autoimmune thyroiditis; E78.00 Pure hypercholesterolemia, unspecified; G47.30 Sleep apnea, unspecified; Z79.899 Other long term (current) drug therapy; Z79.890 Hormone replacement therapy; F17.290 Nicotine dependence, other tobacco product, uncomplicated
CPT/HCPCS: 36415; 58661; 81025; 85027; 88302; J0665; J1100; J1885; J2250; J2405; J3010

== ENCOUNTER 2025-01-21 13:40 | Emergency (ER) | payer OTHER ==
[~2025-01-21] VITALS: Ht 165.1 cm; Wt 94.5 kg
[2025-01-21 14:33] LABS: BASO # 0.1 10^3/uL (0.0-0.2); BASO % 0.6 % (0.0-1.0); EOS # 0.6 10^3/uL (0.0-0.5); EOS % 6.0 % (0.0-3.0); LYMPH # 3.2 10^3/uL (1.5-5.0); LYMPH % 34.1 % (24.0-44.0); MONO # 0.6 10^3/uL (0.0-0.8); MONO % 6.7 % (2.0-8.0); NEUTROPHILS # 4.8 10^3/uL (1.5-8.5); NEUTROPHILS % 52.2 % (36.0-66.0); PLATELET COUNT, AUTOMATED 297 10^3/uL (150-450)
[2025-01-21 15:05] LABS: ALT/SGPT 204 U/L (7.0-40); AST/SGOT 116 U/L (<34); CALCIUM LEVEL 9.5 MG/DL (8.5-10.1); CARBON DIOXIDE LEVEL 26 MMOL/L (20-31); CHLORIDE LEVEL 102 MMOL/L (98-107); CREATININE FOR GFR 0.70 MG/DL (0.55-1.30); GLOMERULAR FILTRATION RATE > 90.0 (>60); POTASSIUM SERUM 4.3 MMOL/L (3.5-5.1); SODIUM LEVEL 140 MMOL/L (136-145)
[2025-01-21 17:55] LABS: HEPATITIS C VIRUS ABY INDEX < 0.02 INDEX (<0.8)
[2025-01-21 18:47] VITALS: TEMP 98.3
[2025-01-21 19:40] VITALS: BP 147/92
[2025-01-21 19:42] VITALS: O2SAT 95
== END 2025-01-21 19:45 | disposition home or self-care (01) ==
LOC: M ED 13:40
DX: R16.0 Hepatomegaly, not elsewhere classified (principal); R94.5 Abnormal results of liver function studies; I10 Essential (primary) hypertension; E06.3 Autoimmune thyroiditis; Z79.890 Hormone replacement therapy; Z79.899 Other long term (current) drug therapy